=== PATIENT | male | born 1970 | race Caucasian/White ===

== ENCOUNTER 2023-11-29 19:57 | Inpatient (IN) | payer OTHER ==
[2023-11-29 20:07] VITALS: BMI 28.3
[2023-11-29] MEDS ORDERED: ASPIRIN 81 MG CHEWABLE TABLETS ONE (20:46)
[2023-11-29] MEDS ORDERED: MAG HYDROX/AL HYDROX/SIMETH 30 ML UNIT-DOSE CUP ONE (20:46)
[2023-11-29] MEDS ORDERED: ACETAMINOPHEN INJECTION 100 ML ONE (20:46)
[2023-11-29] MEDS ORDERED: ONDANSETRON 4 MG/2 ML VIAL ONE (20:47)
[2023-11-29] MEDS ORDERED: FAMOTIDINE 20 MG/50 ML IVPB 20 MG/50 ML MG IVPB ONE (20:47)
[2023-11-29 20:51] LABS: BASO % 0.4 % (0-2.0); EOS % 0.2 % (0-4.5); HEMATOCRIT 44.8 % (35.4-49); HEMOGLOBIN 15.4 GM/dL (11.7-16.9); LYMPH % 5.4 % (8-40); MCH 28.4 pg (25.7-33.7); MCHC 34.3 g/dl (32.0-35.9); MEAN CELL VOLUME 82.8 fl (80-96); PLATELET COUNT 231 10^3/uL (134-434); RBC 5.41 M/mm3 (4.00-5.60); RDW 14.6 % (11.9-15.9); WHITE BLOOD COUNT 10.4 K/mm3 (4.0-10.0)
[2023-11-29] MEDS: FAMOTIDINE 20 MG/50 ML IVPB 20 MG/50 ML MG IVPB ONE (20:56)
[2023-11-29] MEDS: ACETAMINOPHEN 1000 MG/100 ML BAG IVPB ONE (20:56)
[2023-11-29] MEDS: ONDANSETRON 4 MG/2 ML VIAL IVPUSH ONE (20:56)
[2023-11-29] MEDS: ASPIRIN 81 MG CHEWABLE TABLETS PO ONE (20:56)
[2023-11-29] MEDS: MAG HYDROX/AL HYDROX/SIMETH 30 ML UNIT-DOSE CUP PO ONE (20:56)
[2023-11-29 20:57] LABS: INR 1.09 (0.83-1.09); PROTHROMBIN TIME (PATIENT) 12.3 SEC (9.7-13.0)
[2023-11-29] MEDS: SODIUM CHLORIDE 0.9% 500 ML INFUS.BAG IV ONE (20:57)
[2023-11-29 20:59] LABS: ACTIVATED PTT 27.6 SECONDS (25.2-36.5)
[2023-11-29 21:12] LABS: POTASSIUM 4.4 mmol/L (3.5-5.1)
[2023-11-29 21:15] LABS: ALBUMIN 2.3 g/dl (3.4-5.0); BLOOD UREA NITROGEN 19.1 mg/dL (7-18); CALCIUM 8.2 mg/dL (8.5-10.1); MAGNESIUM 2.2 mg/dL (1.8-2.4)
[2023-11-29 21:18] LABS: CREATININE 1.1 mg/dL (0.55-1.3)
[2023-11-29 21:19] LABS: BILIRUBIN,TOTAL 0.5 mg/dL (0.2-1)
[2023-11-29 21:20] LABS: TOT PROT 6.3 g/dl (6.4-8.2)
[2023-11-29] MEDS ORDERED: METOCLOPRAMIDE HCL INJECTION 10 MG/2 ML VIAL ONE (21:47)
[2023-11-29] MEDS: METOCLOPRAMIDE HCL INJECTION 10 MG/2 ML VIAL IVPB ONE (22:06)
[2023-11-30] MEDS ORDERED: AZITHROMYCIN IVPB 500 MG/250 ML BAG IVPB ONE (02:07)
[2023-11-30] MEDS ORDERED: CEFTRIAXONE 1 GM/50 ML BAG ONE (02:07)
[2023-11-30] MEDS: CEFTRIAXONE 1,000 MG in DEXTROSE 5%-WATER - 50 ML IVPB ONE (02:08)
[2023-11-30] MEDS: AZITHROMYCIN IVPB 500 MG in DEXTROSE 5%-WATER - 250 ML IVPB ONE (02:45)
[2023-11-30] MEDS ORDERED: ALBUTEROL SO4 2.5/IPRATROPIUM 0.5 INH SOL 3 ML VIAL.NEB. NEB PRN (04:12)
[2023-11-30] MEDS ORDERED: ONDANSETRON 4 MG/2 ML VIAL IVPUSH PRN (04:25)
[2023-11-30] MEDS ORDERED: ACETAMINOPHEN 1000 MG/100 ML BAG IVPB PRN (04:32)
[2023-11-30] MEDS: methylPREDNISolone NA SUCC 40 MG/1 ML VIAL IVPUSH SCH ×2 (05:27→10:28)
[2023-11-30] MEDS: INSULIN (LEVEMIR) 100 UNITS/ML UNITS SQ ONE (05:27)
[2023-11-30] MEDS ORDERED: ACETAMINOPHEN INJECTION 100 ML ONE (05:32)
[2023-11-30] MEDS: ACETAMINOPHEN 1000 MG/100 ML BAG IVPB ONE (05:39)
[2023-11-30 06:11] LABS: BASO % 0.6 % (0-2.0); EOS % 0.8 % (0-4.5); HEMATOCRIT 44.9 % (35.4-49); HEMOGLOBIN 15.1 GM/dL (11.7-16.9); MCH 28.6 pg (25.7-33.7); MCHC 33.7 g/dl (32.0-35.9); MEAN CELL VOLUME 84.9 fl (80-96); MEAN PLT VOLUME 9.5 fl (7.5-11.1); MONO % 10.1 % (3.8-10.2); NEUT % 80.5 % (42.8-82.8); PLATELET COUNT 210 10^3/uL (134-434); RBC 5.29 M/mm3 (4.00-5.60); RDW 14.7 % (11.9-15.9); WHITE BLOOD COUNT 11.5 K/mm3 (4.0-10.0)
[2023-11-30] MEDS: BUDESONIDE/FORMETEROL FUMARATE 80/4.5 mcg INHALER IH SCH (06:32)
[2023-11-30 06:34] LABS: POTASSIUM 4.4 mmol/L (3.5-5.1)
[2023-11-30 06:36] LABS: ALBUMIN 2.2 g/dl (3.4-5.0); BLOOD UREA NITROGEN 17.5 mg/dL (7-18); CALCIUM 7.9 mg/dL (8.5-10.1)
[2023-11-30 06:41] LABS: BILIRUBIN,TOTAL 0.4 mg/dL (0.2-1); TOT PROT 5.8 g/dl (6.4-8.2)
[2023-11-30] MEDS: CEFTRIAXONE 1 GM in DEXTROSE 5%-WATER - 50 ML IVPB SCH (07:24)
[2023-11-30] MEDS: INSULIN ASPART SLIDING SCALE (NOVOLOG) 1 VIAL SQ SCH (08:05)
[2023-11-30] MEDS ORDERED: INSULIN ASPART SLIDING SCALE (NOVOLOG) 1 VIAL SQ ONE (08:09)
[2023-11-30 08:59] LABS: CHOLESTEROL 264 mg/dL (50-200)
[2023-11-30 09:00] LABS: LDL CHOLESTEROL (ONLY SJRH) 180 mg/dL (5-100)
[2023-11-30 09:02] LABS: HDL CHOLESTEROL 41 mg/dL (40-60)
[2023-11-30] MEDS ORDERED: APIXABAN 5 MG TABLET ONE (10:17)
[2023-11-30] MEDS ORDERED: ASPIRIN COATED 81 MG TABLET.EC ONE (10:17)
[2023-11-30] MEDS ORDERED: methylPREDNISolone NA SUCC 40 MG/1 ML VIAL ONE (10:17)
[2023-11-30] MEDS: APIXABAN 5 MG TABLET PO SCH (10:28)
[2023-11-30] MEDS: ASPIRIN COATED 81 MG TABLET.EC PO SCH (10:28)
[2023-11-30] MEDS: INSULIN (NOVOLOG) ASPART 100 UNITS/ML 10ML VIAL SQ SCH (11:47)
[2023-11-30] MEDS: PIPERACILLIN/TAZOB 3.375 GM 3.375 GM in DEXTROSE 5%-WATER - 50 ML IVPB SCH (17:43)
[2023-11-30] MEDS: ATORVASTATIN CA 80 MG TABLET (FP) PO SCH (22:09)
[2023-11-30] MEDS: INSULIN (LEVEMIR) 100 UNITS/ML UNITS SQ SCH (22:14)
[2023-12-01] MEDS: INSULIN (NOVOLOG) ASPART 100 UNITS/ML 10ML VIAL SQ ONE ×2 (00:32→05:15)
[2023-12-01] MEDS ORDERED: AZITHROMYCIN IVPB 500 MG/250 ML BAG IVPB SCH (01:00)
[2023-12-01] MEDS ORDERED: CEFTRIAXONE 1 GM in DEXTROSE 5%-WATER - 50 ML IVPB SCH (02:00)
[2023-12-01] MEDS: INSULIN (LEVEMIR) 100 UNITS/ML UNITS SQ ONE ×2 (05:59→10:02)
[2023-12-01] MEDS: INSULIN (NOVOLOG) ASPART 100 UNITS/ML 10ML VIAL SQ SCH ×2 (06:45→11:32)
[2023-12-01 07:22] LABS: HEMATOCRIT 38.8 % (35.4-49); MCH 28.3 pg (25.7-33.7); MCHC 33.5 g/dl (32.0-35.9); MEAN CELL VOLUME 84.4 fl (80-96); PLATELET COUNT 244 10^3/uL (134-434); RDW 14.5 % (11.9-15.9); WHITE BLOOD COUNT 13.2 K/mm3 (4.0-10.0)
[2023-12-01 07:43] LABS: POTASSIUM 4.2 mmol/L (3.5-5.1)
[2023-12-01 07:46] LABS: BLOOD UREA NITROGEN 28.5 mg/dL (7-18); CALCIUM 7.7 mg/dL (8.5-10.1)
[2023-12-01 07:47] LABS: MAGNESIUM 2.5 mg/dL (1.8-2.4)
[2023-12-01 07:49] LABS: CREATININE 0.9 mg/dL (0.55-1.3)
[2023-12-01 07:50] LABS: PHOSPHOROUS 2.6 mg/dL (2.5-4.9)
[2023-12-01 07:51] LABS: BILIRUBIN,TOTAL 0.4 mg/dL (0.2-1); TOT PROT 5.4 g/dl (6.4-8.2)
[2023-12-01] MEDS ORDERED: INSULIN (LEVEMIR) 100 UNITS/ML UNITS SQ SCH (08:11)
[2023-12-01] MEDS: SACUBITRIL/VALSARTAN 24 MG-26 MG TABLET PO SCH (10:44)
[2023-12-01] MEDS: AMOX TR/POT CLAV 875MG/125MG TABLETS (FP) PO SCH (10:44)
[2023-12-01] MEDS: metoPROLOL SUCCINATE 25 MG TAB.SR.24H (FP) PO SCH (10:44)
[2023-12-01 11:41] LABS: EPI CELLS 9 /uL (0-25.1); HYALINE CASTS 3 /uL (0-3.1); PH,URINE 5.5 (5.0-8.0); URINE APPEARANCE CLEAR; URINE BACTERIA 2 /uL (0-1359); URINE BILIRUBIN NEGATIVE (NEGATIVE); URINE COLOR YELLOW; URINE GLUCOSE (UA) 3+ (NEGATIVE); URINE KETONE NEGATIVE (NEGATIVE); URINE LEUK ESTERASE NEGATIVE (NEGATIVE); URINE NITRITE NEGATIVE (NEGATIVE); URINE PROTEIN 3+ (NEGATIVE); URINE RBC 22 /uL (0-23.9); URINE UROBILINOGEN 0.2 mg/dL (0.2-1.0); URINE WBC 7 /uL (0-25.8)
[2023-12-01 14:33] VITALS: BP 98/82; PULSE 89; RESP 18; TEMP 98.6
== END 2023-12-01 17:46 | disposition home or self-care (01) | DRG 137 ==
LOC: JER 19:57 → JERBED 11-30 01:44 → J6S 11-30 10:38
PROVIDERS: ADMIT Internal Medicine; ATTEND Internal Medicine
DX: J69.0 Pneumonitis due to inhalation of food and vomit (principal); I48.91 Unspecified atrial fibrillation; I25.10 Atherosclerotic heart disease of native coronary artery without angina pectoris; J44.0 Chronic obstructive pulmonary disease with (acute) lower respiratory infection; J44.1 Chronic obstructive pulmonary disease with (acute) exacerbation; E78.5 Hyperlipidemia, unspecified; I25.2 Old myocardial infarction; J44.9 Chronic obstructive pulmonary disease, unspecified; E11.65 Type 2 diabetes mellitus with hyperglycemia; N28.1 Cyst of kidney, acquired; K59.00 Constipation, unspecified; I24.89 Other forms of acute ischemic heart disease; I11.0 Hypertensive heart disease with heart failure; I50.22 Chronic systolic (congestive) heart failure; Z95.5 Presence of coronary angioplasty implant and graft
CPT/HCPCS: 36415; 71046-TC-FY; 74177-TC; 80053; 80061; 81003; 82962; 83036; 83690; 83735; 83930; 84100; 84443; 84484; 85025; 85027; 85610; 85730; 87040; 87635; 87804; 93005; 93010; 93306-TC; 99285-25; J0131; Q9967